=== PATIENT | male | born 1945 | race Caucasian/White ===

== ENCOUNTER → 2019-07-13 | Outpatient (CLI) | payer OTHER ==
[~2019-07-13] MED LIST: CALC667 PO; DOXA4 PO; HYDACE5 PO; MULVITMINF PO
== END | disposition home or self-care (01) ==
LOC: PLD 14:21 → LAB SHORT 14:21
DX: D36.7 Benign neoplasm of other specified sites (principal)
CPT/HCPCS: 88305

== ENCOUNTER → 2019-07-27 | Outpatient (CLI) | payer OTHER ==
[2019-07-27 11:21] LABS: Source, Urine Clean Catch
[2019-07-27 13:52] LABS: Bilirubin, Urine Neg (Neg); Blood, Urine 1+ (Neg); Glucose Qualitative, Urine Neg (Neg); Ketones, Urine 1+ (Neg); Leukocyte Esterase, Urine Neg (Neg); Nitrite, Urine Neg (Neg); Protein, Urine Neg (Neg); Urobilinogen, Urine NORM (Normal)
[2019-07-27 14:09] LABS: Appearance, Urine Clear (Clear); Color, Urine Yellow (P-Yellow)
[2019-07-27 14:11] LABS: Bacteria Few /hpf; Calcium Oxalate Crystals Mod /hpf; Red Blood Cells, Urine 0-2 /hpf (0-2); Squamous Epithelial Cells Rare /hpf (Few); White Blood Cells, Urine Not Seen /hpf (0-5)
== END | disposition home or self-care (01) ==
LOC: LAB SHORT 10:51 → LAB 10:51
PROVIDERS: Physician Assistant
DX: R31.0 Gross hematuria (principal)
CPT/HCPCS: 81001; 87086

== ENCOUNTER 2024-08-29 08:33 | Day surgery (SDC) | payer OTHER ==
[~2024-08-29] VITALS: Ht 172.7 cm; Wt 89.3 kg
[~2024-08-29 08:33] MED LIST changes: +METHI10 PO
[2024-08-29] MEDS ORDERED: Lactated Ringer's 1,000 ML IV SCH (09:20)
[2024-08-29 09:38] VITALS: BP 154/83
--- NOTE | 2024-08-29 09:49 | NUR ---
History, Chart, Medications and Allergies reviewed before start of procedure.Pre-Op teaching done. Pt verbalizes understanding. Patient States Post-Procedure ride home has been arranged WITH DAUGHTER. Pre-Op teaching done. Pt verbalizes understanding.
[2024-08-29] MEDS ORDERED: propofoL 50 ML IV ONE (09:51)
[2024-08-29] MEDS ORDERED: propofoL 20 ML IV ONE (09:57)
--- NOTE | 2024-08-29 10:08 | NUR ---
08/29/24 1008 Chris Cano MONITOR INTACT WITH CONTINUOUS PULSE OXIMETRY, CONTINUOUS END TITAL CO2, 3-LEAD EKG AND INTERMITTENT BLOOD PRESSURE. ANESTHESIA PER DR. LOPEZ
[2024-08-29 10:40] VITALS: BP 116/79
[2024-08-29 10:45] VITALS: BP 123/59
[2024-08-29 10:57] VITALS: BP 124/75
--- NOTE | 2024-08-29 11:12 | NUR ---
Patient up to Ambulate independently. Gait steady. Discharge instructions reviewed with patient. Patient verbalizes understanding. Copy given to patient to take home, [facility]. Patient States Post-Procedure ride home has been arranged. Discharged via wheelchair to private car for ride home. PT A/O. TOLERATING PO. REPORTS READY TO GO HOME.
== END 2024-08-29 11:12 | disposition home or self-care (01) ==
LOC: ORD 08:33 → ORSCMMR 08:33 → ORD 08-30 09:30
PROVIDERS: Internal Medicine Gastroenterology
PROC: 0DBK8ZX Excision of Ascending Colon, Via Natural or Artificial Opening Endoscopic, Diagnostic (ICD-10-PCS; principal; 2024-08-29 12:00)
DX: Z12.11 Encounter for screening for malignant neoplasm of colon (principal); D12.2 Benign neoplasm of ascending colon; D37.4 Neoplasm of uncertain behavior of colon; K64.8 Other hemorrhoids; Z86.0101 Personal history of adenomatous and serrated colon polyps; E05.90 Thyrotoxicosis, unspecified without thyrotoxic crisis or storm; I10 Essential (primary) hypertension; G47.33 Obstructive sleep apnea (adult) (pediatric); N40.0 Benign prostatic hyperplasia without lower urinary tract symptoms; Z79.899 Other long term (current) drug therapy
CPT/HCPCS: 88305; J2704; J7120